=== PATIENT | male | born 1940 | race Caucasian/White ===

== ENCOUNTER 2017-10-05 08:04 | Day surgery (SDC) | payer OTHER ==
[2017-10-05] MEDS ORDERED: diphenhydrAMINE 25 MG CAP PO ONE (08:06)
[2017-10-05] MEDS ORDERED: DIAZEPAM 5 MG TAB PO ONE (08:06)
[2017-10-05] MEDS ORDERED: NS 1,000 ML IV ONE (08:06)
[2017-10-05] MEDS ORDERED: BACITRACIN IRRIGATION/NS 50,000 UNITS/1,000 ML BTL IRR ONE (08:06)
[2017-10-05] MEDS ORDERED: ceFAZolin 2 GM/SWFI 2 GM/20 ML SYR IVP ONE (08:06)
--- NOTE | 2017-10-05 08:29 | CPEKG ---
Heart Rate: 56 RR Interval: 1071 P-R Interval: 132 QRSD Interval: 100 QT Interval: 428 QTC Interval: 414 P [place]: 29 QRS [place]: 8 T Wave [place]: -32 EKG Severity - ABNORMAL ECG - EKG Impression: VENTRICULAR-PACED COMPLEXES with VA dissociation EKG Impression: Sinus rhythm Electronically Signed By: Alexander Stark 07-Oct-2017 07:33:47
[2017-10-05 08:40] LABS: PLATELET COUNT 232 10^3/uL (150-400)
--- NOTE | 2017-10-05 08:49 | PDPROPOC ---
Sedation Plan of Care Sedation Plan of Care: vital signs stable, mental status noted, patient educated of risks, benefits, alternatives, patient can tolerate sedation ASA Classification: ASA 1 Planned drugs: fentanyl, midazolam Mallampati Score: Class 1 Mallampati Reference Image: Patient passed 3-3-2 rule?: Yes
[2017-10-05] MEDS ORDERED: LIDOCAINE 1% 300 MG/30 ML SDV ONE (08:52)
[2017-10-05] MEDS ORDERED: fentaNYL 100 MCG/2 ML INJ ONE ×2 (08:52→09:53)
[2017-10-05] MEDS ORDERED: LIDO/EPI 1% **for epidural** 30 ML SDV ONE (08:53)
[2017-10-05] MEDS ORDERED: MIDAZOLAM 2 MG/2 ML VIAL ONE ×2 (08:53→09:54)
[2017-10-05] MEDS ORDERED: BUPIVACAINE 0.5% 10 ML SDV ONE (08:53)
--- NOTE | 2017-10-05 08:53 | PDGENHP ---
History & Physical Chief Complaint: Pacemaker generator change History of Present Illness: 77-year-old male well known to me last seen July 29 here for pacemaker generator change. Device is at end of life. He has had no complications from the device. He is free of fever or chills otherwise feeling well. Pertinent Past, Social, Family History: Past medical history notable for atrial fibrillation/flutter with permanent pacemaker. History of hypertension, hyperlipidemia. Social history: No tobacco or alcohol. Family history not pertinent. Relevant Physical Exam: Well-nourished well-developed male no distress. Pacemaker pocket well healed in the left subclavian fossa. There is no erythema or edema. Cardiac examination reveals a regular rate and rhythm without RV lift. Lungs are clear. Extremities are free of edema. Cardiorespiratory Assessment: Assessment: Pacemaker at end of life. Patient is here for generator change. There are no contraindications. Device change is appropriate. No cardiovascular complications identified that would inhibit proceeding with procedure today. Review of Systems Review of Systems: - Review of Systems Constitutional: no symptoms reported EENTM: no symptoms reported Respiratory: no symptoms reported Cardiac: no symptoms reported Gastrointestinal/Abdominal: no symptoms reported Genitourinary: no symptoms Musculoskelatal: no symptoms Skin: no symptoms Neurological: no symptoms Hematologic/Lymphatic: no symptoms reported Immunologic/allergic: no symptoms reported
[2017-10-05 08:59] LABS: INR 1.07 (0.83-1.16); PROTIME(PATIENT) 14.1 SEC (12.0-15.0)
--- NOTE | 2017-10-05 10:41 | PDCTREPORT ---
Cardiothoracic Procedure Rpt Cardiothoracic Procedure Report: Procedure: Pacemaker generator change. Indications: Pacemaker end of life. After obtaining informed consent patient brought to the cardiac catheterization lab in the fasting state. The pacemaker site in the left subclavian fossa was sterilely prepped and draped. It was infiltrated with 2% xylocaine. Using a 10 blade an incision was made through the old scar. Using a combination of sharp and blunt dissection and the Bovie catheter the pacemaker pocket was entered the old device was delivered to the field. Set screws were loosened. The old device was removed. The pocket was copiously irrigated. A new generator was delivered to the field. Leads were attached to the device. Set screws were tightened per industry standards after checking serial numbers. The device was placed back in the pocket. Pocket was closed using 3 layer closure. Pressure dressing was applied the patient is taken to recovery for continued care. Device: Edora 8-DR-T SN [id number] RA lead: Setrox [id number] RV leade Setrox S [id number] Right atrial sensing 3 mV. Impedance 593 Ohms. Capture 0.7 volts with a pulse with 0.4 milliseconds. Right ventricular sensing 3.6 mV. Impedance 535 Ohms. Capture 0.9 volts with a pulse with 0.4 milliseconds. Successful generator change. Patient Problems: Problems Problem Status Onset Atrial fibrillation and flutter Active Hyperlipidemia Active Pacemaker at end of battery life Acute
--- NOTE | 2017-10-05 11:54 | CPEKG ---
Heart Rate: 62 RR Interval: 968 P-R Interval: 196 QRSD Interval: 90 QT Interval: 408 QTC Interval: 415 P [place]: 21 QRS [place]: -7 T Wave [place]: -26 EKG Severity - ABNORMAL ECG - EKG Impression: ATRIAL-PACED COMPLEXES EKG Impression: ABNORMAL T, CONSIDER ISCHEMIA, INFERIOR LEADS Electronically Signed By: Alexander Stark 07-Oct-2017 07:33:06
== END 2017-10-05 13:08 | disposition home or self-care (01) ==
LOC: FCATH 08:04
PROVIDERS: ATTEND Internal Medicine Interventional Cardiology
PROC: 0JPT0PZ Removal of Cardiac Rhythm Related Device from Trunk Subcutaneous Tissue and Fascia, Open Approach (ICD-10-PCS; principal; 2017-10-05)
PROC: 0JH606Z Insertion of Pacemaker, Dual Chamber into Chest Subcutaneous Tissue and Fascia, Open Approach (ICD-10-PCS; principal; 2017-10-05)
DX: Z45.010 Encounter for checking and testing of cardiac pacemaker pulse generator [battery] (principal); I48.91 Unspecified atrial fibrillation; E78.5 Hyperlipidemia, unspecified; I10 Essential (primary) hypertension
CPT/HCPCS: C1785; J0690; J1200; J2250; J3010